=== PATIENT | female | born 1990 | race Caucasian/White ===

== ENCOUNTER 2017-06-07 13:47 | Emergency (ER) | payer SELFPAY ==
--- NOTE | 2017-06-07 14:06 | Emergency Department Record ---
History of Present Illness - General Chief Complaint: Abdominal Pain Stated Complaint: ABD PAIN Time Seen by Provider: 06/07/17 14:05 Source: Patient Mode of Arrival: Ambulatory Limitations: No limitations - History of Present Illness Initial Comments: The patient is here due to a 4 hour hx of cramping epigastric abdominal pain. The pain is waxing and waning and is associated with nausea but no vomiting. She denies any diarrhea, fever, dysuria, or any lower abdominal pain. The patient has no hx of similar problems and her only abdominal surgery was a BTL. MD Complaint: Abdominal pain Onset/Timin -: Hour(s) Location: Epigastric Severity: Moderate Quality: Cramping Consistency: Intermittent Improves With: Rest Worsens With: Movement - Related Data Patient : No Previous Rx's Medication Instructions Recorded Sucralfate [Carafate] 1 gm PO QID #28 tablet 06/07/17 Allergies Allergy/AdvReac Type Severity Reaction Status Date / Time No Known Drug Allergies Allergy Verified 06/07/17 14:39 Travel Screening - Travel/Exposure Within Last 30 Days Have you traveled within the last 30 days?: No - Travel/Exposure Within Last Year Have you traveled outside the [place] in the last year?: No - Additonal Travel Details Have you been exposed to anyone with a communicable illness?: No - Travel Symptoms Symptom Screening: None Review of Systems Constitutional: Denies: Chills, Fever Eyes: Denies: Eye discharge ENT: Denies: Congestion Respiratory: Denies: Cough, Dyspnea Past Medical History - SOCIAL HISTORY Smoking Status: Current every day smoker Alcohol Use: Rare Drug Use: None - RESPIRATORY Hx Respiratory Disorders: No - CARDIOVASCULAR Hx Cardio Disorders: No - NEURO Hx Neuro Disorders: No - GI Hx GI Disorders: No - Hx Genitourinary Disorders: No - ENDOCRINE Hx Endocrine Disorders: No - MUSCULOSKELETAL Hx Musculoskeletal Disorders: No - PSYCH Hx Psych Problems: No - HEMATOLOGY/ONCOLOGY Hx Hematology/Oncology Disorders: Yes Comment:: Had a leap procedure for pre-cancer of cervix Family Medical History Any Significant Family History?: Yes Hx Dementia: Grandparents Physical Exam - General General Appearance: Alert, Oriented x3, Cooperative, No acute distress - Head Head exam: Atraumatic, Normocephalic, Normal inspection - Eye Eye exam: Normal appearance, PERRL - Neck Neck exam: Normal inspection, Full ROM. negative: Tenderness - Respiratory Respiratory exam: Normal lung sounds bilaterally. negative: Respiratory distress - Cardiovascular Cardiovascular Exam: Regular rate, Normal rhythm, Normal heart sounds - GI/Abdominal GI/Abdominal exam: Soft, Tenderness (There is mild epigastric tenderness.). negative: Guarding, Organomegaly, Pulsatile mass, Rigid - Extremities Extremities exam: Normal inspection, Full ROM, Normal capillary refill. negative: Tenderness - Neurological Neurological exam: Alert. negative: Motor sensory deficit Course Vital Signs 06/07/17 13:56 Temperature 97.5 F L Pulse Rate 71 Respiratory 16 Rate Blood Pressure 104/72 Pulse Ox 100 - Reevaluation(s) Reevaluation #1: The patient is doing a lot better at this time. Her pain is 90% resolved and she is resting comfortably. 06/07/17 14:53 Reevaluation #2: The patient is doing a lot better and her pain is resolved. On exam her abdomen is very soft and nontender in all 4 quads. I did explain to her that her tests are all WNL's and we will discharge her on Carafate. 06/07/17 15:13 Medical Decision Making - Data Complexity MDM Data: Labs Ordered and/or Reviewed - Lab Data Result diagrams: 06/07/17 14:17 06/07/17 14:17 Disposition Disposition: Discharge Clinical Impression: Gastritis Qualifiers: Gastritis type: unspecified gastritis Chronicity: acute Gastritis bleeding: without bleeding Qualified Code(s): K29.00 - Acute gastritis without bleeding Disposition: Home, Self-Care Condition: (1) Good Instructions: Abdominal Pain (ED) Additional Instructions: Please eat a very bland diet and take the Carafate as directed. Please see your PCP next week for recheck and return to the ER for any increased pain, fever, or vomiting. Prescriptions: Sucralfate [Carafate] 1 gm PO QID #28 tablet Forms: Patient Portal Access Time of Disposition: 15:15 Quality - Quality Measures Quality Measures: N/A - Blood Pressure Screening View Details: Yes Does Patient Have Any of the Following: No Blood Pressure Classification: Normal BP Reading Systolic Measurement: 109 Diastolic Measurement: 74 Screening for High Blood Pressure: < Normal BP, F/U Not Required > [G8783]
[2017-06-07] MEDS ORDERED: SUCRALFATE 1 G/10 ML UD PO ONE (14:08)
[2017-06-07] MEDS ORDERED: SODIUM CHLORIDE 0.9% 500 ML IV ONE (14:08)
[2017-06-07] MEDS ORDERED: ONDANSETRON HCL IV 4 MG/2 ML VIAL IV ONE (14:08)
[2017-06-07 14:24] LABS: HEMOGLOBIN 13.1 gm/dl (11.6-16.0); MEAN CELL VOLUME 88.1 fl (81-97); MEAN CORPUSCULAR HEMOGLOBIN 28.9 pg (27-33); MEAN CORPUSCULAR HGB CONC 32.8 g/dl (32-36); MEAN PLATELET VOLUME 9.8 fl (7.4-10.4); PLATELET COUNT 245 K/uL (130-400); RED BLOOD COUNT 4.54 M/uL (3.80-5.40)
[2017-06-07 14:37] LABS: ALBUMIN 4.4 g/dL (4.0-5.0); ALKALINE PHOSPHATASE 66 U/L (35-104); ALT/SGPT 8 U/L (<33); AST/SGOT 15 U/L (10.0-35.0); BILIRUBIN,DIRECT 0.2 mg/dL (0-0.3); BLOOD UREA NITROGEN 8 mg/dL (6-20); CREATININE 0.6 mg/dL (0.5-0.9); EST GLOMERULAR FILTRATION RATE > 60 mL/min; GLUCOSE,RANDOM 96 mg/dL (74-109); LIPASE 12 U/L (13-60); TOTAL PROTEIN 7.2 g/dL (6.6-8.7)
[2017-06-07] MEDS ORDERED: MAGNESIUM HYDROXIDE/AL HYDROX 30 ML, LIDOCAINE VISC 2% 200 MG PO ONE ×2 (14:46)
[2017-06-07 15:06] LABS: URINE APPEARANCE CLEAR; URINE BILIRUBIN NEGATIVE (NEGATIVE); URINE BLOOD NEGATIVE (NEGATIVE); URINE COLOR YELLOW; URINE GLUCOSE (UA) NEGATIVE (NEGATIVE); URINE KETONE NEGATIVE (NEGATIVE); URINE LEUKOCYTE ESTERASE NEGATIVE (NEGATIVE); URINE NITRITE NEGATIVE (NEGATIVE); URINE PROTEIN NEGATIVE (NEGATIVE); URINE UROBILINOGEN 0.2 E.U./dL (0.20 - 1.00)
[2017-06-07 15:10] LABS: HCG,QUALITATIVE URINE NEGATIVE (NEGATIVE)
== END 2017-06-07 15:29 | disposition home or self-care (01) ==
LOC: ER 13:47
DX: K29.00 Acute gastritis without bleeding (principal); R10.13 Epigastric pain; R11.0 Nausea
CPT/HCPCS: 99284 ×2; 96374; 83690; 80076; 80048; 81003; 81025; 85027; J2405

== ENCOUNTER 2017-09-11 10:16 | Emergency (ER) | payer SELFPAY ==
[2017-09-11] MEDS ORDERED: ORPHENADRINE CITRATE 60MG/2ML VIAL IM ONE (10:48)
--- NOTE | 2017-09-11 10:53 | Emergency Department Record ---
History of Present Illness - General Chief complaint: Pain Stated complaint: HIP PAIN Time Seen by Provider: 09/11/17 10:37 Source: Patient Mode of Arrival: Ambulatory Limitations: No limitations - History of Present Illness Initial comments: The patient is here due to low back pain for one day. The pain is located in the L lower lumbar paraspinal area. It is a sharp stabbing pain that is worse with movement and walking and bending. 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 Last night she was doing her normal duties and noticed some pain in the low back. There was no specific injury or trauma. The pain slowly worsened during the night and now is worse with any walking or twisting. There is no pain radiating down the legs and now leg numbness, weakness, or any bowel or bladder issues. The patient states she has had a normal LMP and does have a hx of TL. MD Complaint: Other Onset/Timin -: Days(s) Location: Left, Other History of Same: No Radiation: None Quality: Sharp Consistency: Intermittent Improves with: Nothing Worsens with: Walking, Weight bearing Associated Symptoms: Denies other symptoms - Related Data Previous Rx's Medication Instructions Recorded Cyclobenzaprine HCl [Flexeril] 10 mg PO TID PRN #15 tablet 09/11/17 Naproxen [Naprosyn] 250 mg PO BID #14 tablet 09/11/17 Allergies Allergy/AdvReac Type Severity Reaction Status Date / Time No Known Drug Allergies Allergy Verified 06/07/17 14:39 Travel Screening - Travel/Exposure Within Last 30 Days Have you traveled within the last 30 days?: No Review of Systems Constitutional: Denies: Chills, Fever Past Medical History - SOCIAL HISTORY Smoking Status: Current every day smoker - RESPIRATORY Hx Respiratory Disorders: No - CARDIOVASCULAR Hx Cardio Disorders: No - NEURO Hx Neuro Disorders: No - GI Hx GI Disorders: No - Hx Genitourinary Disorders: No - ENDOCRINE Hx Endocrine Disorders: No - MUSCULOSKELETAL Hx Musculoskeletal Disorders: No - PSYCH Hx Psych Problems: No - HEMATOLOGY/ONCOLOGY Hx Hematology/Oncology Disorders: Yes Comment:: Had a leap procedure for pre-cancer of cervix Family Medical History Any Significant Family History?: Yes Hx Dementia: Grandparents Physical Exam - General General Appearance: Alert, Oriented x3, Cooperative, No acute distress - Head Head exam: Atraumatic, Normocephalic, Normal inspection - Eye Eye exam: Normal appearance, PERRL - Neck Neck exam: Normal inspection, Full ROM. negative: Tenderness - Respiratory Respiratory exam: Normal lung sounds bilaterally. negative: Respiratory distress - Cardiovascular Cardiovascular Exam: Regular rate, Normal rhythm, Normal heart sounds - GI/Abdominal GI/Abdominal exam: Soft, Normal bowel sounds. negative: Tenderness - Extremities Extremities exam: Normal inspection, Full ROM, Normal capillary refill, Other ( Neg SLR bilaterally.). negative: Tenderness Image of Full Body: 1 - Area of pain but no tenderness. - Back Back exam: Reports: Normal inspection, Full ROM. Denies: Muscle spasm, Paraspinal tenderness, Rash noted, Tenderness, Vertebral tenderness - Neurological Neurological exam: Alert, Normal gait, Oriented X3, Reflexes normal. negative: Abnormal gait, Altered, Motor sensory deficit Course Vital Signs 09/11/17 10:24 Temperature 98.3 F Pulse Rate 94 H Respiratory 18 Rate Blood Pressure 107/70 Pulse Ox 100 - Reevaluation(s) Reevaluation #1: The patient is doing much better at this time and is ready for home. 09/11/17 11:22 Disposition Disposition: Discharge Clinical Impression: Low back pain Qualifiers: Chronicity: acute Back pain laterality: left Sciatica presence: without sciatica Qualified Code(s): M54.5 - Low back pain Disposition: Home, Self-Care Condition: (2) Stable Instructions: Low Back Strain (ED) Additional Instructions: Please rest with no lifting for 2 days and off work today. Please take the Naprosyn and Flexeril as directed. Please see your PCP next week for recheck and return to the ER for any worsening symptoms of pain or any leg numbness, weakness, or any bowel or bladder issues. Prescriptions: Cyclobenzaprine HCl [Flexeril] 10 mg PO TID PRN #15 tablet PRN Reason: Pain Naproxen [Naprosyn] 250 mg PO BID #14 tablet Forms: Patient Portal Access Time of Disposition: 11:25 Quality - Quality Measures Quality Measures: N/A - Blood Pressure Screening View Details: Yes Does Patient Have Any of the Following: No Blood Pressure Classification: Normal BP Reading Systolic Measurement: 107 Diastolic Measurement: 70 Screening for High Blood Pressure: < Normal BP, F/U Not Required > [G8738]
[2017-09-11] MEDS: KETOROLAC 30 MG/ML VIAL IM ONE ×2 (11:08→11:09)
== END 2017-09-11 11:30 | disposition home or self-care (01) ==
LOC: ER 10:16
DX: G89.11 Acute pain due to trauma (principal); M54.5 Low back pain; X50.3XXA Overexertion from repetitive movements, initial encounter; Y93.F2 Activity, caregiving, lifting; Y92.128 Other place in nursing home as the place of occurrence of the external cause; Y99.0 Civilian activity done for income or pay
CPT/HCPCS: 99283 ×2; 96372; J1885; J2360

== ENCOUNTER 2017-12-16 14:01 | Emergency (ER) | payer SELFPAY ==
[2017-12-16] MEDS: IBUPROFEN 600 MG TABLET PO ONE (14:19)
[2017-12-16] MEDS: CLINDAMYCIN 150 MG CAP PO ONE (14:19)
--- NOTE | 2017-12-16 14:19 | Emergency Department Record ---
History of Present Illness - General Chief Complaint: Neck Injury/Pain Stated Complaint: STIFF NECK,LUMP UNDER LT SIDE JAW/EAR Time Seen by Provider: 12/16/17 14:11 Source: Patient Mode of Arrival: Ambulatory Limitations: No limitations - History of Present Illness Initial Comments: 27 yo female presents with tenderness to the lymph nodes on the left side of the upper neck. She denies any fever. Mild sore throat. She has pain with opening and closing her jaw but no limitation. She has pain at that site with neck movement but again no limitation. She woke up with the symptoms. No cough , congestion, no redness, no rash. She does not have any other swollen glands anywhere else. Mild decrease in appetite. No current PCP. MD Complaint: Neck pain -: Days(s) (today) Place: Home Radiation: Other (Left upper neck) Severity: Moderate Quality: Aching Consistency: Constant Improves With: Remaining still Worsens With: Other (Palpation) Associated Symptoms: Other (decreased appetite) Treatments Prior to Arrival: None - Related Data Previous Rx's Medication Instructions Recorded Amoxicillin 500Mg Capsule [Amoxil] 500 mg PO TID #30 tab 12/16/17 Clindamycin HCl 300 mg PO QID #28 capsule 12/16/17 Ibuprofen [Motrin 600Mg] 600 mg PO Q6H #20 tablet 12/16/17 Allergies Allergy/AdvReac Type Severity Reaction Status Date / Time No Known Drug Allergies Allergy Verified 12/16/17 14:06 Review of Systems Constitutional: Denies: Chills, Fever, Malaise, Weakness Eyes: Denies: Eye discharge, Eye pain, Photophobia, Vision change ENT: Reports: Ear pain, Throat pain. Denies: Congestion, Dental pain Respiratory: Denies: Cough, Dyspnea, Hemoptysis, Stridor, Wheezes Cardiovascular: Denies: Chest pain, Palpitations, Syncope Endocrine: Denies: Fatigue, Polydipsia, Polyuria Gastrointestinal: Denies: Abdominal pain, Diarrhea, Nausea, Vomiting Genitourinary: Denies: Dysuria, Urgency Musculoskeletal: Denies: Arthralgia, Back pain, Joint swelling, Myalgia Skin: Denies: Bruising, Change in color, Lesions, Rash Neurological: Denies: Headache, Numbness, Weakness Psychiatric: Denies: Anxiety Hematological/Lymphatic: Reports: As per HPI, Swollen glands. Denies: Anemia, Blood Clots, Easy bleeding, Easy bruising Past Medical History - SOCIAL HISTORY Smoking Status: Current every day smoker - RESPIRATORY Hx Respiratory Disorders: No - CARDIOVASCULAR Hx Cardio Disorders: No - NEURO Hx Neuro Disorders: No - GI Hx GI Disorders: No - Hx Genitourinary Disorders: No - ENDOCRINE Hx Endocrine Disorders: No - MUSCULOSKELETAL Hx Musculoskeletal Disorders: No - PSYCH Hx Psych Problems: No - HEMATOLOGY/ONCOLOGY Hx Hematology/Oncology Disorders: Yes Comment:: Had a leap procedure for pre-cancer of cervix Family Medical History Hx Dementia: Grandparents Physical Exam - General General Appearance: Alert, Oriented x3, Cooperative, No acute distress Limitations: No limitations - Head Head exam: Normocephalic, Normal inspection - Eye Eye exam: Normal appearance, PERRL. negative: Conjunctival injection, Periorbital swelling, Scleral icterus - ENT ENT exam: Mucous membranes moist, TM's normal bilaterally. negative: Normal orophraynx (pharyngeal erythema) Ear exam: Normal external inspection Nasal Exam: Normal inspection Mouth exam: Normal external inspection Teeth exam: Normal inspection Throat exam: Tonsillar erythema, Tonsillomegaly (mild). negative: Normal inspection, Tonsillar exudate, R peritonsillar mass, L peritonsillar mass - Neck Neck exam: Normal inspection, Full ROM, Lymphadenopathy (Palpable upper Left cervical lymph nodes that are tender, no warmth, redness or fluctuance. No lower tender lymph nodes, no supraclavicular LN palpable. No right sided palpable or tender lymph nodes. No Left or Right axillary lymph nodes), Tenderness. negative: Meningismus, Thyromegaly - Respiratory Respiratory exam: Normal lung sounds bilaterally. negative: Respiratory distress, Rhonchi, Stridor, Wheezes - Cardiovascular Cardiovascular Exam: Regular rate, Normal rhythm, Normal heart sounds - GI/Abdominal GI/Abdominal exam: Soft. negative: Distended, Guarding, Organomegaly (no spleen tenderness), Rebound, Rigid, Tenderness - Rectal Rectal exam: Deferred - exam: Deferred - Extremities Extremities exam: Normal inspection. negative: Tenderness - Back Back exam: Denies: CVA tenderness (R), CVA tenderness (L) - Neurological Neurological exam: Alert, Oriented X3 - Psychiatric Psychiatric exam: negative: Agitated, Anxious - Skin Skin exam: Dry, Intact, Normal color, Warm Course - Reevaluation(s) Reevaluation #1: 12/16/17 14:19 The patient has isolated tender upper Left Cervical Lymph nodes with mild tonsillar erythema. No other palpable or tender lymph nodes of the supraclavicular, axillary areas. No right sided tender neck lymph nodes. 12/16/17 14:31 The strep is negative. This still could be an early infection due to onset this morning I recommended NSAID and Clindamycin with recheck in 24-48 hours if not improved. Sooner if worse. Disposition Disposition: Discharge Clinical Impression: Cervical adenitis Disposition: Home, Self-Care Condition: (1) Good Instructions: Adenitis (ED) Additional Instructions: Return immediately if you have fever, worse, new areas of lymph node tenderness or concerns Return in 1-2 days if not improving and sooner if worse Take the Motrin and Clindamycin as directed Prescriptions: Amoxicillin 500Mg Capsule [Amoxil] 500 mg PO TID #30 tab Clindamycin HCl 300 mg PO QID #28 capsule Ibuprofen [Motrin 600Mg] 600 mg PO Q6H #20 tablet Forms: Patient Portal Access Time of Disposition: 14:32 Quality - Quality Measures Quality Measures: N/A - Blood Pressure Screening Does Patient Have Any of the Following: No Blood Pressure Classification: Normal BP Reading Systolic Measurement: 113 Diastolic Measurement: 70 Screening for High Blood Pressure: < Normal BP, F/U Not Required > [G8783]
== END 2017-12-16 14:41 | disposition home or self-care (01) ==
LOC: ER 14:01
DX: L04.0 Acute lymphadenitis of face, head and neck (principal); F17.210 Nicotine dependence, cigarettes, uncomplicated
CPT/HCPCS: 87880; 99283